=== PATIENT | male | born 1980 | race African-American/Black ===

== ENCOUNTER 2021-03-03 04:26 | Emergency (ER) | payer SELFPAY ==
[~2021-03-03] VITALS: Ht 190.5 cm; Wt 110.0 kg
[2021-03-03] MEDS ORDERED: ACETAMINOPHEN 325MG TABLET PO ONE (05:30)
[2021-03-03] MEDS ORDERED: TOPUD PO (05:34)
[2021-03-03 08:05] VITALS: BP 132/84
== END 2021-03-03 08:05 ==
LOC: ER 04:26
DX: M25.511 Pain in right shoulder (principal); M54.2 Cervicalgia; G89.11 Acute pain due to trauma; Y35.893A Legal intervention involving other specified means, suspect injured, initial encounter; Y93.89 Activity, other specified; Y92.89 Other specified places as the place of occurrence of the external cause
CPT/HCPCS: 73030; 99283

== ENCOUNTER 2024-05-04 15:07 | Emergency (ER) | payer SELFPAY ==
[~2024-05-04] VITALS: Ht 185.4 cm; Wt 106.0 kg
[~2024-05-04 15:07] MED LIST: TOPUD PO
[2024-05-04 15:10] VITALS: TEMP 98.4; O2SAT 97
[2024-05-04 16:00] VITALS: O2SAT 98
[2024-05-04] MEDS ORDERED: NAPR-1486 MT (18:23)
[2024-05-04] MEDS ORDERED: AMOX1TAB16 MT (18:23)
[2024-05-04 19:27] VITALS: BP 160/90; PULSE 66; RESP 18
[2024-05-04] MEDS: KETOROLAC 15MG/ML VIAL IM ONE (19:27)
== END 2024-05-04 19:40 | disposition home or self-care (01) ==
LOC: ER 15:07
DX: K04.7 Periapical abscess without sinus (principal); Z79.1 Long term (current) use of non-steroidal anti-inflammatories (NSAID)
CPT/HCPCS: 99283; 96372; J1885